=== PATIENT | female | born 1980 | race Two or more races ===

== ENCOUNTER 2024-10-01 14:50 | Outpatient (REF) | payer OTHER, SELFPAY ==
--- NOTE | 2024-10-01 15:20 | CRLHL7_ITS ---
For Patients: As a result of the Century Cures Act, medical imaging exams and procedure reports are released immediately into your electronic medical record. You may view this report before your referring provider. If you have questions, please contact your health care provider. INDICATION: BILATERAL SCREENING MAMMOGRAM, ASYMPTOMATIC 43 Y/O FEMALE COMPARISON: NONE TECHNIQUE: Digital mammogram in CC and MLO projections including computer-aided detection (CAD) and tomosynthesis. BREAST COMPOSITION: There are scattered areas of fibroglandular density. FINDINGS: No suspicious findings. ASSESSMENT: BI-RADS 1 Negative RECOMMENDATION: Annual screening mammogram. A lay language report of this examination will be provided to the patient. Dictated by: Gt Mcnulty MD @ 10/02/2024 10:12:44 (Electronically Signed)
--- OUTSIDE RECORDS SUMMARY | 2024-10-02 00:11 | XMS_ITS | Clinical Summary ---
Author Organization [facility] Address [address] [place] [id number] Care Team Providers Care Sandwich Peddler Name Role Phone [facility] Primary Care Provider + Allergies Active Allergy Reactions Criticality Noted Date Comments Latex Rash Low 05/11/2015 PN: redness Medications acetaminophen (TYLENOL) 325 MG tablet Take 650 mg by mouth as needed for mild pain Active azithromycin (ZITHROMAX) 250 MG tabletIndication s:Community Acquired Pneumonia Take 1 tablet (250 mg) by mouth daily 4 tablet 07/26/2021 Active cefdinir (OMNICEF) 300 MG capsuleIndicatio ns:Sepsis without acute organ dysfunction, due to unspecified organism (H) Take 1 capsule (300 mg) by mouth 2 times daily 8 capsule 07/25/2021 Active glipiZIDE (GLUCOTROL XL) 5 MG 24 hr tabletIndication s:Type 2 diabetes mellitus without complication, without long-term current use of insulin (H) Take 1 tablet (5 mg) by mouth daily 30 tablet 07/25/2021 Active metFORMIN (GLUCOPHAGE) 500 MG tabletIndication s:Type 2 diabetes mellitus without complication, without long-term current use of insulin (H) Take 1 tablet (500 mg) by mouth 2 times daily (with meals) 60 tablet 1 07/25/2021 Active potassium chloride ER (KLOR-CON M) 20 MEQ CR tabletIndication s:Hypokalemia Take 2 tablets (40 mEq) by mouth daily 4 tablet 07/25/2021 Active pantoprazole (PROTONIX) 40 MG EC tabletIndication s:Esophageal dysphagia Take 1 tablet (40 mg) by mouth every morning (before breakfast) 10 tablet 07/26/2021 Active Active Problems Problem Noted Date Diagnosed Date Pyelonephritis, acute 07/21/2021 Sepsis 07/21/2021 Pyelonephritis 07/21/2021 Type 2 diabetes mellitus 07/21/2021 Septic shock 07/21/2021 Family History Medical History Relation Comments No Known Problems Father No Known Problems Mother Relation Status Comments Father Mother Social History Tobacco Use Types Packs/Day Years Used Date Smoking Tobacco: Never Assessed Adolescent Education Answer Date Record ed Getting School Help Needed Not on file 12/23 Comments No Sex and Gender Information Value Date Recorded Sex Assigned at Not on file Legal Sex Female 4:26 PM SENIOR DIGITAL DESIGNER Gender Identity Not on file Sexual Orientation Not on file Last Filed Vital Signs Vital Sign Reading Time Taken Comments Blood Pressure 130/69 07/25/2021 3:43 PM CDT Pulse 82 07/25/2021 3:43 PM CDT Temperature 36.9 C (98.5 F) 07/25/2021 3:43 PM CDT Respiratory Rate 18 07/25/2021 3:43 PM CDT Oxygen Saturation 99% 07/25/2021 3:43 PM CDT Inhaled Oxygen Concentration - - Weight 66.7 kg (147 lb 1.6 oz) 07/24/2021 2:33 P M CDT Height 165.1 cm (5' 5) 07/22/2021 1:00 AM CDT Body Mass Index 24.48 07/22/2021 1:00 AM CDT Plan of Treatment Health Maintenance Due Date Last Done Comments ADVANCE CARE PLANNING 1981 ANNUAL REVIEW OF HM ORDERS 1981 DIABETIC FOOT EXAM 1981 EYE EXAM 1981 MAMMO SCREENING 1981 YEARLY PREVENTIVE VISIT 1984 HIV SCREENING 1996 HEPATITIS C SCREENING 10/13/1999 HEPATITIS B VACCINE (1 of 3 - 19+ 3-dose series) 2000 PNEUMOCOCCAL VACCINE: PEDIATRICS (0 to 5 YEARS) AND AT-RISK PATIENTS (6 to 49 YEARS) (1 of 2 - PCV) 2000 LIPID 02/05/2019 02/05/2018, 03/0 12/2015, 06/24/2014 MICROALBUMIN 02/05/2019 02/05/2018 A1C 10/24/2021 07/25/2021, 06/2 08/2018, 02/05/2018, Additional history exists BMP 07/25/2022 07/25/2021, 042 05/2021, 07/22/2021, Additional history exists COVID-19 VACCINE ( season) 2023 09/27/2020, 09/07/2020 PHQ-2 (once per calendar year) 2024 INFLUENZA VACCINE (Season Ended) 2024 03/23/2015 DTAP/TDAP/TD VACCINE (2 - Td or Tdap) 03/23/2025 03/23/2015 HPV TEST 11/27/2028 11/28/2023, 09/25/2018 PAP 11/27/2028 11/28/2023, 11/01, 09/25/2018, Additional history exists ZOSTER VACCINE (1 of 2) 10/13/2031 HPV VACCINE Aged Out No longer eligi ble based on patient's age to complete this topic MENINGITIS VACCINE Aged Out No longer eligible based on patient's age to complete this topic Procedures Procedure Name Priority Date/Time Associated Diagnosis Comments HPV AND GYNECOLOGIC CYTOLOGY PANEL Routine 11/28/2023 10:45 AM CDT BASIC METABOLIC PANEL Routine 07/25/2021 10:19 AM CDT HEMOGLOBIN A1C Routine 07/25/2021 10:19 AM CDT ALBUMIN RANDOM URINE QUANTITATIVE Routine 02/05/2018 5:00 PM SENIOR DIGITAL DESIGNER LIPID PROFILE Routine 02/05/2018 5:00 PM SENIOR DIGITAL DESIGNER from Last 3 Months or Most Recently Relevant to Health Maintenance Results * HPV and Gynecologic Cytology Panel (11/28/2023 10:45 AM CDT) Human Papilloma Virus 16 DNA Negative Negative 11/29/2023 1:43 PM CDT [facility] Human Papilloma Virus 18 DNA Negative Negative 11/29/2023 1:43 PM CDT [facility] Human Papilloma Virus Other Negative Negative 11/29/2023 1:43 PM CDT [facility] FINAL DIAGNOSIS This patient's sample is negative for high risk HPV DNA. METHODOLOGY: The [employer] system uses automated extraction, simultaneous amplification of HPV (E6/E7 oncogenes) and beta-globin, followed by real time detection of fluorescent labeled HPV and beta globin using specific oligonucleotide probes. The test specifically identifies types HPV 16 DNA and HPV 18 DNA while concurrently detecting the rest of the high risk types (31, 33, 35, 39, 45, 51, 52, 56, 58, 59, 66 or 68). COMMENTS: This test is not intended for use as a screening device for woman under age 30 with normal cervical cytology. Results should be correlated with cytologic and histologic findings. Close clinical follow up is recommended. Please see the separate Gynecologic Cytology (Pap) report from the same collection date. 11/29/2023 1:43 PM CDT [facility]LE[facility]AGNOSTICS Brushing ENDOCERVICAL STRUCTURE / Unknown Non-blood Collection / Unknown 11/28/2023 10:45 AM CDT 11/28/2023 4:05 PM CDT Elena Mcguire MD LAB - BLOOD ORDERABLES Final Re sult [facility] Specialty Lab [address] [facility], Room [address] MOLECULAR DIAGNOSTICS Molecular Diagnostics [address] [facility], [address] * (ABNORMAL) Hemoglobin A1c (07/25/2021 10:19 AM CDT) Hemoglobin A1C 8.8(H) 0.0 - 5.6 % 07/25/2021 10:52 AM CDT LABORATORY Comment: Normal <5.7% Prediabetes 5.7-6.4% Diabetes 6.5% or higher Note: Adopted from ADA consensus guidelines. Blood CATHETER / Unknown VAD(CVC, PICC ) / Unknown 07/25/2021 10:19 AM CDT 07/25/2021 10:29 AM CDT Sher Brewster MD LAB - BLOOD ORDERABLES Final Res ult LABORATORY [facility] [address] Lab (1st floor, no room number) [place] [address], [facility] [phone] * (ABNORMAL) Basic metabolic panel (07/25/2021 10:19 AM CDT) Sodium 140 133 - 144 mmol/L 07/25/2021 11:01 AM CDT LABORATORY Potassium 2.9(L) 3.4 - 5.3 mmol/L 07/25/2021 11:01 AM CDT LABORATORY Chloride 107 94 - 109 mmol/L 07/25/2021 11:01 AM CDT LABORATORY Carbon Dioxide (CO2) 27 20 - 32 mmol/L 07/25/2021 11:01 AM CDT LABORATORY Anion Gap 6 3 - 14 mmol/L 07/25/2021 11:01 AM CDT LABORATORY Urea Nitrogen 4(L) 7 - 30 mg/dL 07/25/2021 11:01 AM CDT LABORATORY Creatinine 0.42(L) 0.52 - 1.04 mg/dL 07/25/2021 11:01 AM CDT LABORATORY Calcium 7.7(L) 8.5 - 10.1 mg/dL 07/25/2021 11:01 AM CDT LABORATORY Glucose 213(H) 70 - 99 mg/dL 07/25/2021 11:01 AM CDT LABORATORY GFR Estimate >90 >60 mL/min/1.7 3m2 07/25/2021 11:01 AM CDT LABORATORY Comment:Effective March 032020 eGFRcr in adults is calculated using the 2020 CKD-EPI creatinine equation which includes age and gender (Lola et al., NEJ, DOI: 10.1056/UUIPxy1030575) Blood CATHETER / Unknown VAD(CVC, PICC ) / Unknown 07/25/2021 10:19 AM CDT 07/25/2021 10:29 AM CDT us Sher Brewster MD LAB - BLOOD ORDERABLES Final Res ult LABORATORY [facility] [address] Lab (1st floor, no room number) [place] [address] [phone] * Albumin Random Urine Quantitative (02/05/2018 5:00 PM SENIOR DIGITAL DESIGNER) Microalbumin Urine mg/dL 1.91 0.00 - 1.99 mg/dL 02/05/2018 9:53 PM SENIOR DIGITAL DESIGNER [facility] Creatinine, Urine 140.1 mg/dL 018 9:53 PM SENIOR DIGITAL DESIGNER [facility] Microalbumin Urine mg/g Cr 13.6 <=19.9 mg/g 02/05/2018 9:53 PM SENIOR DIGITAL DESIGNER [facility] Urine specimen (specimen) Non-blood Collection / Unknown 02/05/2018 5:00 PM SENIOR DIGITAL DESIGNER 02/05/2018 9:11 PM SENIOR DIGITAL DESIGNER Narrative [facility] - 02/05/2018 9:53 PM SENIOR DIGITAL DESIGNER Microalbumin, Random Urine <2.0 mg/dL . . . . . . . . Normal 3.0-30.0 mg/dL . . . . . . Microalbuminuria >30.0 mg/dL . . . . . . . Clinical Proteinuria Microalbumin/Creatinine Ratio, Random Urine <20 mg/g . . . . .. . . . Normal 30-300 mg/g . . . . . . . Microalbuminuria >300 mg/g . . . . . . . . Clinical Proteinuria us Elena Mcguire MD LAB - URINE ORDERABLES Final Re sult [facility] [address] [place] [id number], [facility] [address] [place] [address] * Lipid Profile (02/05/2018 5:00 PM SENIOR DIGITAL DESIGNER) Cholesterol 167 <=199 mg/dL 02/05/2018 9:50 PM SENIOR DIGITAL DESIGNER [facility] Triglycerides 65 <=149 mg/dL 02/05/2018 9:50 PM SENIOR DIGITAL DESIGNER [facility] Direct Measure HDL 67 >=50 mg/dL 02/05/2018 9:50 PM SENIOR DIGITAL DESIGNER [facility] LDL Cholesterol Calculated 87 <=129 mg/dL 02/05/2018 9:50 PM SENIOR DIGITAL DESIGNER [facility] Patient Fasting > 8hrs? Unknown 02/05/2018 9:50 PM SENIOR DIGITAL DESIGNER [facility] Blood specimen (specimen) Client Draw / Unknown 02/05/2018 5:00 PM SENIOR DIGITAL DESIGNER 02/05/2018 9:11 PM SENIOR DIGITAL DESIGNER us Elena Mcguire MD LAB - BLOOD ORDERABLES Final Re sult [facility] [address] [address], [facility] [address] [address] from Last 3 Months or Most Recently Relevant to Health Maintenance Insurance HEATH [employer]GRAM Advance Directives For more information, please contact: [phone] * Full Code (Latest Code Status on File) Date Activated Date Inactivated Comments 07/22/2021 12:35 AM 07/25/2021 7:43 PM All basic a nd advanced life-sustaining interventions are performed as appropriate Question Answer Comments Code status determined by: Discussion with josh nt/ legal decision maker Care Teams Sandwich Peddler Relationship Specialty Start Date End Date [facility] Martin ramos MD [address] [place] [id number] PCP - General Internal Medicine 05/28/13
--- OUTSIDE RECORDS SUMMARY | 2024-10-02 00:12 | XMS_ITS | Clinical Summary ---
[facility] Organization [facility] Address [address] [place] [address] Care Team Providers Care Shotblast Equipment Operator Name Role Phone Clinician, Not Found MD Primary Care Provider Un available Source Comments You are receiving this document as you are listed as the primary care provider,follow-up provider, or the patient has been referred to you for consultation.This is in compliance with the Medicare andVeterans Health Administrationcaid EHR Incentive Program,which states Providers who transition their patient to another setting of careor provider of care or refers their patient to another provider of care shouldprovide summary care record for each transition of care or referral. [facility] Allergies Active Allergy Reactions Criticality Noted Date Comments Latex Rash Low 05/11/2015 PN: redness Medications metFORMIN (AKA GLUCOPHAGE) 1000 MG tablet Take 1,000 mg by mouth 2 times daily (with meals). 5 Active ibuprofen (MOTRIN) 200 MG tablet Take 3 tablets by mouth every 6 hours as needed for Pain. 100 tablet 0 6 Active insulin aspart (NOVOLOG) 100 UNIT/ML injection (vial) Inject subcutaneously three times daily before meals. Active Active Problems Problem Noted Date Diagnosed Date Mild nonproliferative diabet ic retinopathy of both eyes without macular edema associated with type 2 diabetes mellitus 12/27/2022 Type 2 diabetes mellitus 07/21/2021 Septic shock 07/21/2021 Immunizations Immunization Administration Dates Next Due Influenza IIV4 (Quadrivalent ) 0.5mL (55940) 03/23/2015 TDAP (BOOSTRIX) 03/23/2015, 5(Deferred: Contraindication - Not feeling well today.) Family History Medical History Relation Name Comments Hypertension Mother Diabetes Paternal Grandfather Diabetes Paternal Grandmother Amblyopia/Strabismus Negative Family History Blindness Negative Family History Cataract Negative Family History Glaucoma Negative Family History Macular Degeneration Negative Family History Retinal Detachment Negative Family History Stroke Negative Family History Thyroid Disorder Negative Family History Relation Name Status Comments Father Alive Mother Alive Brother 1 Alive Brother 2 Alive Maternal Grandfather Maternal Grandmother Paternal Grandfather Paternal Grandmother Sister 1 Alive Sister 2 Alive Sister 3 Alive Sister 4 Alive Social History Tobacco Use Types Packs/Day Years Used Date Smoking Tobacco: Never Smokeless Tobacco: Never Alcohol Use Standard Drinks/Week Comments No 0 (1 standard drink = 0.6 oz pur e alcohol) Comments No Sex and Gender Information Value Date Recorded Sex Assigned at Not on file Legal Sex Female 6:34 AM CDT Gender Identity Not on file Sexual Orientation Not on file Occupation Industry Job Start Date Job End Date Homemaker Not on file Not on file Not on file Last Filed Vital Signs Vital Sign Reading Time Taken Comments Blood Pressure 105/64 05/25/2015 10:19 AM FITTER WELDER Pulse 70 05/25/2015 10:19 AM FITTER WELDER Temperature 37.1 C (98.8 F) 09/19/2013 10:01 AM CDT Respiratory Rate 32 09/19/2013 10:01 AM CDT Oxygen Saturation 97% 09/19/2013 10:01 AM CDT Inhaled Oxygen Concentration - - Weight 60.3 kg (133 lb) 05/25/2015 10:19 AM FITTER WELDER Height 158.1 cm (5' 2.25) 05/10/2015 11:[address] Body Mass Index 24.13 05/10/2015 11:28 AM FITTER WELDER Plan of Treatment Health Maintenance Due Date Last Done Comments Diabetes: Foot Exam 1981 Hep C Screening (Preventive Services) 1981 Tuberculosis Screening 1981 Mammogram 1981 HIV Screening (Preventive Services) 1997 Adult Preventive Visit 10/13/1999 HepB Vaccine (1) 2000 Pneumococcal Vaccine (1 of 2 - PCV) 2000 Cervical Cancer Screening 03/23/2018 03/23/2015, COVID-19 Vaccine ( season) 2023 09/27/2020, 09/07/2020 Diabetes: Eye Exam 12/28/2023 12/27/2022, 0 12/27/2022, 12/27/2020, Additional history exists Diabetes: HGBA1C 08/04/2024 05/07/2024, 02/2024, 11/10/2023, Additional history exists Diabetes: Creatinine 08/10/2024 08/11/2023, 07/12/2022, 08/27/2021, Additional history exists Diabetes: Urine Microalbumin 08/10/202402/2024, 07/12/2022, 08/30/2021, Additional history exists Influenza Vaccine (Season Ended) 2024 03/23/2015 DTaP/Tdap/Td Vaccine (2 - Tdap) 03/23/2025 03/23/2015 Diabetes: Lipid Panel 08/10/2028 08/11/2023 , 07/12/2022, 08/27/2021, Additional history exists Zoster/Shingles Vaccine (1 of 2) 10/13/2031 HPV Vaccine Aged Out No longer eligi ble based on patient's age to complete this topic HepA Vaccine Aged Out No longer eligi ble based on patient's age to complete this topic Hib Vaccine Aged Out No longer eligi ble based on patient's age to complete this topic IPV (Polio) Vaccine Aged Out No longe r eligible based on patient's age to complete this topic MCV4 Vaccine Aged Out No longer eligi ble based on patient's age to complete this topic Meningococcal B Vaccine Aged Out No l onger eligible based on patient's age to complete this topic Procedures Procedure Name Priority Date/Time Associated Diagnosis Comments HGB A1C Routine 05/07/2024 1:22 PM FITTER WELDER Other specified diabetes mellitus without complication, without long-term current use of insulin (HRC) ALBUMIN/CREAT RATIO Routine 08/11/2023 8 :09 AM CDT Other specified diabetes mellitus without complication, without long-term current use of insulin (HRC) COMPREHENSIVE METABOLIC PANEL Routine 08/11/2023 8:05 AM CDT Other specified diabetes mellitus without complication, without long-term current use of insulin (HRC) LIPID PANEL & DIRECT LDL (IF NEEDED) Routine 08/11/2023 8:05 AM CDT Other specified diabetes mellitus without complication, without long-term current use of insulin (HRC) ANATOMICAL PATH LIQUID BASED Routine 03/23/2015 11:41 AM FITTER WELDER from Last 3 Months or Most Recently Relevant to Health Maintenance Results * (ABNORMAL) Hgb A1C (05/07/2024 1:22 PM FITTER WELDER) Pathologist [facility] Hemoglobin A1C (Rapid) 10.7(H) <=5.6 % 05/07/2024 2:17 PM FITTER WELDER [facility] Estimated Average Glucose (Calc) 260 < 117 mg/dL 05/07/2024 2:17 PM [facility] Comment:Estimated average gl ucose (eAG) converts A1c into glucose units (mg/dL) and estimates average glucose over the past approximately 3 months. The eAG reference interval (<117 mg/dL) corresponds to an A1c of <5.7%. Blood Venipuncture / Unknown 05/07/2024 1:22 PM FITTER WELDER 05/07/2024 1:25 PM FITTER WELDER Narrative [facility] - 05/07/2024 2:17 PM FITTER WELDER For patients not previously diagnosed with diabetes: 5.7-6.4%: Increased risk for diabetes 6.5% and greater: Diagnostic for diabetes For patients diagnosed with diabetes: <8.0%: Goal of therapy for ages 18-75 Clinicians may recommend a higher or lower goal for specific individuals. The test method used for this Hemoglobin A1c result can experience interference from elevated hemoglobin and other hemoglobin variants. In patients with results that do not correlate clinically, contact the lab for further direction. us Elena Mcguire MD LAB_1 Final Result [facility] [address] [place] [address], [facility] * Albumin/Creatinine Ratio,Random Urine (08/11/2023 8:09 AM CDT) Pathologist [facility] Albumin/Creati nine Ratio, Urine, Random 7 <30 mg/g 08/11/2023 10:49 AM [facility] Albumin, Urine, Random 5.1 mg/L 08/11/2023 10:49 AM [facility] Creatinine, Urine, Random 75 >20 mg/dL mg/dL 08/11/2023 10:49 AM [facility] Urine Non-blood Collection / Unknown 08/11/2023 8:09 AM CDT 08/11/2023 8:09 AM CDT us Elena Mcguire MD LAB_1 Final Result Performing Organization Address [facility] de Phone Number [address] [id number] * Lipid Panel (reflex to Direct LDL if indicated) (08/11/2023 8:05 AM CDT) [facility] Signature Cholesterol 177 0 - 199 mg/dL 08/11/2023 10:33 AM [facility] Triglyceride 86 <=149 mg/dL 08/11/2023 10:33 AM [facility] HDL Cholesterol 68 >=40 mg/dL 4 10:33 AM [facility] LDL, Calculated 92 <130 mg/dL 4 10:33 AM [facility] Non HDL Chol, Calculated 109 <=159 mg/dL 08/11/2023 10:33 AM [facility] Cholesterol/HDL Ratio 2.6 <=5.0 08/11/2023 10:33 AM [facility] Hours Fasting 0.1 8 - 12 Hours 08/11/2023 10:33 AM [facility] Comment:Lab unable to obtain patient's fasting status at time of specimen collection. Blood Venipuncture / Unknown 08/11/2023 8:05 AM CDT 08/11/2023 8:10 AM CDT us Elena Mcguire MD LAB_1 Final Result Performing Organization Address [facility] Co de Phone Number [facility] [address] [place] [address] * (ABNORMAL) Comp Metabolic Panel (08/11/2023 8:05 AM [facility] Sodium 135(L) 136 - 145 mmol/L 08/11/2023 10:33 AM [facility] Potassium 4.6 3.5 - 5.1 mmol/L 08/11/2023 10:33 AM [facility] Chloride 106 98 - 109 mmol/L 08/11/2023 10:33 AM [facility] CO2 22 20 - 29 mmol/L 08/11/2023 10:33 AM [facility] Anion Gap 7 6 - 16 mmol/L 08/11/2023 10:33 AM [facility] Calcium 8.9 8.4 - 10.4 mg/dL 08/11/2023 10:33 AM [facility] BUN 13 7 - 26 mg/dL 08/11/2023 10:33 AM [facility] Creatinine 0.55 0.55 - 1.02 mg/dL 08/11/2023 10:33 AM [facility] Alkaline Phosphatase 74 40 - 150 U/L 08/11/2023 10:33 AM [facility] AST (SGOT) 15 10 - 40 U/L 08/11/2023 10:33 AM [facility] ALT (SGPT) 15 <=55 U/L 08/11/2023 10:33 AM [facility] Bilirubin, Total 0.3 0.2 - 1.2 mg/dL 08/11/2023 10:33 AM [facility] Protein, Total 7.0 6.4 - 8.3 g/dL 08/11/2023 10:33 AM [facility] Albumin 3.5 3.5 - 5.0 g/dL 08/11/2023 10:33 AM [facility] Glucose 223(H) 70 - 100 mg/dL 08/11/2023 10:33 AM [facility] Comment:The given reference range is for the fasting state. Non-fasting reference range for glucose is 70 - 180 mg/dL. GFR, Estimated >60 >60 mL/min/1.7 3m2 08/11/2023 10:33 AM [facility] Hours Fasting 0.1 8 - 12 Hours 08/11/2023 10:33 AM CDT [facility] Comment:Lab unable to obtain patient's fasting status at time of specimen collection. Blood Venipuncture / Unknown 08/11/2023 8:05 AM CDT 08/11/2023 8:10 AM CDT us Elena Mcguire MD LAB_1 Final Result Performing Organization Address City/[facility] Co de Phone Number [facility] [address] [place] [address] * Pap Smear (03/23/2015 11:41 AM FITTER WELDER) 03/23/2015 11:4 1 AM FITTER WELDER Narrative HP CONVERSION - 03/29/2015 12:20 PM FITTER WELDER FINAL GYNECOLOGICAL CYTOLOGY REPORT Pathology #: [id number] Date Obtained: 03/23/2015 Date Received: 03/24/2015 INTERPRETATION/RESULTS: Negative for Intraepithelial Lesion or Malignancy. SPECIMEN ADEQUACY: Satisfactory for Evaluation. Endocervical cells/transformation zone component present. Verified on 03/29/2015 by JONG BAILON(ASCP) (electronic signature) CLINICAL NOTES: Abnormal bleeding: No, LMP: 03/07/15, Menstrual status: None Apply, Current form of therapy: None apply LIQUID BASED PAP SMEAR SPECIMEN TYPE: ROUTINE CERVICAL PAP TEST PLEASE NOTE: The pap smear is a screening test designed to aid in the detection of cervical cancer and its precursor lesions. It is not a diagnostic procedure and should not be used as the sole means of detecting cervical cancer. Both false-positive and false-negative reports may occur. End of Report Performed at [facility], [address] [place] [id number] us Sally Toscano MD LAB_1 Final Result Performing Organization Address City/[facility]/ZIP Co de Phone Number HP CONVERSION from Last 3 Months or Most Recently Relevant to Health Maintenance Advance Directives * Full Code (Latest Code Status on File) Date Activated Date Inactivated Comments 05/11/2015 2:04 PM 05/11/2015 5:37 PM Care Teams Shotblast Equipment Operator Relationship Specialty Start Date End Date Clinician, Not Found, [place] [address] PCP - General 09/25/14
== END 2024-10-01 14:51 | disposition home or self-care (01) ==
LOC: MAMMO 14:50
PROVIDERS: PCP Registered Nurse; Visit Provider Registered Nurse
DX: Z12.31 Encounter for screening mammogram for malignant neoplasm of breast (principal)
CPT/HCPCS: 77063; 77067; T1013